=== PATIENT | male | born 1950 | race Caucasian/White ===

== ENCOUNTER 2020-06-04 08:51 | Outpatient (REF) | payer OTHER, MEDICARE, SELFPAY ==
[2020-06-04 11:38] LABS: Hemoglobin 14.6 g/dl (14.0-18.0); Mean Corpuscular HGB Conc 32.4 g/dl (31.0-36.0); Mean Corpuscular Hemoglobin 29.6 pg (27.0-33.0); Mean Corpuscular Volume 91.3 fL (80-98); Mean Platelet Volume 10.9 fL (9.4-12.4); Platelet Count 263 X10*3/uL (160-400); Red Blood Count 4.93 X10*6/uL (4.60-5.80); Red Cell Distribution Width 12.6 % (11.0-16.0); White Blood Count 5.9 X10*3/uL (4.8-10.8)
[2020-06-04 12:35] LABS: Alanine Aminotransferase 22 U/L (0-40); Albumin Level 4.2 g/dL (3.5-5.0); Alkaline Phosphatase 63 U/L (39-117); Anion Gap 11 (12-20); Aspartate Amino Transferase 19 U/L (5-37); Bilirubin Total 0.7 mg/dL (0.0-1.0); Blood Urea Nitrogen 16 mg/dL (9-16); Calcium 9.4 mg/dL (8.4-10.2); Carbon Dioxide 29 mmol/L (22-29); Chloride 104 mmol/L (96-108); Cholesterol 168 mg/dL; Estimated Glomerular Filt Rate > 60; Glucose Fasting 91 mg/dL (60-99); HDL Cholesterol 64 mg/dL; LDL Cholesterol Calculated 93 mg/dl; Potassium 4.4 mmol/l (3.3-5.1); Sodium 140 mmol/L (135-145); Total Protein 6.6 g/dL (6.5-8.0); Triglycerides 59 mg/dL
== END 2020-06-04 08:52 | disposition home or self-care (01) ==
LOC: HO.MANLDS 08:51
PROVIDERS: PCP Internal Medicine; Visit Provider Internal Medicine
DX: E78.00 Pure hypercholesterolemia, unspecified (principal)
CPT/HCPCS: 36415; 80053; 80061; 85027

== ENCOUNTER 2021-05-27 07:42 | Outpatient (REF) | payer OTHER, SELFPAY ==
[2021-05-27 11:03] LABS: MANUAL DIFF FLAG NO
[2021-05-27 11:08] LABS: Basophils Absolute Auto 0.1 X10*3/uL (0.0-0.2); Basophils Percent Auto 0.9 % (0-2); Eosinophils Absolute Auto 0.3 X10*3/uL (0.0-0.4); Eosinophils Percent Auto 5.5 % (0-4); Hematocrit 44.7 % (42-52); Hemoglobin 14.4 g/dl (14.0-18.0); Imm Gran Abs Auto 0.02 X10*3/uL (0.00-0.03); Imm Gran Pct Auto 0.3 % (0.0-0.4); Lymphocytes Absolute Auto 2.2 X10*3/uL (1.2-4.9); Lymphocytes Percent Auto 37.1 % (20-40); Mean Corpuscular HGB Conc 32.2 g/dl (31.0-36.0); Mean Corpuscular Hemoglobin 29.3 pg (27.0-33.0); Mean Corpuscular Volume 90.9 fL (80-98); Monocytes Absolute Auto 0.6 X10*3/uL (0.1-1.2); Monocytes Percent Auto 10.4 % (2-11); Neutrophils Absolute Auto 2.7 X10*3/uL (2.0-8.3); Neutrophils Percent Auto 45.8 % (45-73); Platelet Count 241 X10*3/uL (160-400); Red Blood Count 4.92 X10*6/uL (4.60-5.80); Red Cell Distribution Width 12.6 % (11.0-16.0); White Blood Count 5.9 X10*3/uL (4.8-10.8)
[2021-05-27 11:28] LABS: Alanine Aminotransferase 23 U/L (0-40); Albumin Level 4.1 g/dL (3.5-5.0); Alkaline Phosphatase 58 U/L (39-117); Anion Gap 9 (12-20); Aspartate Amino Transferase 20 U/L (5-37); Bilirubin Total 0.9 mg/dL (0.0-1.0); Blood Urea Nitrogen 21 mg/dL (9-16); Calcium 9.2 mg/dL (8.4-10.2); Carbon Dioxide 31 mmol/L (22-29); Chloride 106 mmol/L (96-108); Cholesterol 160 mg/dL; Estimated Glomerular Filt Rate > 60; Glucose Fasting 96 mg/dL (60-99); HDL Cholesterol 57 mg/dL; LDL Cholesterol Calculated 93 mg/dl; Potassium 4.1 mmol/L (3.3-5.1); Sodium 142 mmol/L (135-145); Total Protein 6.5 g/dL (6.5-8.0); Triglycerides 53 mg/dL
[2021-05-27 11:58] LABS: Prostate Specific Antigen 5.33 ng/mL (<0.05-4.0); Vitamin D 25-OH Total 30.4 ng/mL (>30)
== END 2021-05-27 07:43 | disposition home or self-care (01) ==
LOC: HO.MANLDS 07:42
PROVIDERS: PCP Internal Medicine; Visit Provider Internal Medicine
DX: Z00.01 Encounter for general adult medical examination with abnormal findings (principal); Z12.5 Encounter for screening for malignant neoplasm of prostate
CPT/HCPCS: 36415; 80053; 80061; 82306; 84153; 85025

== ENCOUNTER 2022-08-19 07:35 | Outpatient (REF) | payer OTHER, SELFPAY ==
[2022-08-19 11:12] LABS: MANUAL DIFF FLAG NO
[2022-08-19 11:28] LABS: Basophils Absolute Auto 0.1 X10*3/uL (0.0-0.2); Basophils Percent Auto 0.8 % (0-2); Eosinophils Absolute Auto 0.3 X10*3/uL (0.0-0.4); Eosinophils Percent Auto 4.6 % (0-4); Hematocrit 42.9 % (42.0-52.0); Hemoglobin 14.1 g/dl (14.0-18.0); Imm Gran Abs Auto 0.02 X10*3/uL (0.00-0.03); Imm Gran Pct Auto 0.3 % (0.0-0.4); Lymphocytes Absolute Auto 2.3 X10*3/uL (1.2-4.9); Lymphocytes Percent Auto 38.8 % (20-40); Mean Corpuscular HGB Conc 32.9 g/dl (31.0-36.0); Mean Corpuscular Hemoglobin 29.7 pg (27.0-33.0); Mean Corpuscular Volume 90.3 fL (80.0-98.0); Mean Platelet Volume 10.9 fL (9.4-12.4); Monocytes Absolute Auto 0.6 X10*3/uL (0.1-1.2); Monocytes Percent Auto 10.8 % (2-11); Neutrophils Absolute Auto 2.6 x10*3/uL (2.0-8.3); Neutrophils Percent Auto 44.7 % (45-73); Platelet Count 225 X10*3/uL (160-400); Red Blood Count 4.75 X10*6/uL (4.60-5.80); Red Cell Distribution Width 12.8 % (11.0-16.0); White Blood Count 5.9 X10*3/uL (4.8-10.8)
[2022-08-19 12:03] LABS: Alanine Aminotransferase 23 U/L (0-40); Alkaline Phosphatase 50 U/L (39-117); Anion Gap 10 (12-20); Aspartate Amino Transferase 21 U/L (5-37); Blood Urea Nitrogen 19 mg/dL (9-16); Calcium 9.6 mg/dL (8.4-10.2); Carbon Dioxide 31 mmol/L (22-29); Chloride 105 mmol/L (96-108); Cholesterol 198 mg/dL; Estimated Glomerular Filt Rate > 60; Glucose Random 90 mg/dL (60-115); HDL Cholesterol 70 mg/dL; LDL Cholesterol Calculated 116 mg/dl; Potassium 3.9 mmol/L (3.3-5.1); Prostate Specific Antigen 5.36 ng/mL (<0.05-4.0); Sodium 142 mmol/L (135-145); Total Protein 6.2 g/dL (6.5-8.0); Triglycerides 62 mg/dL
== END 2022-08-19 07:36 | disposition home or self-care (01) ==
LOC: HO.MANLDS 07:35
PROVIDERS: Visit Provider Internal Medicine
DX: Z00.00 Encounter for general adult medical examination without abnormal findings (principal); Z12.5 Encounter for screening for malignant neoplasm of prostate
CPT/HCPCS: 36415; 80053; 80061; 82306; 84153; 85025

== ENCOUNTER 2023-01-05 08:31 | Outpatient (REF) | payer OTHER, MEDICARE, SELFPAY ==
[2023-01-06 15:13] LABS: Free Prostate Spec Ag 1.2 ng/mL; Percent Free Prostate Spec Ag 19 % (calc) (>25); Prostate Specific Ag Total 6.2 ng/mL (< OR = 4.0)
== END 2023-01-05 08:32 | disposition home or self-care (01) ==
LOC: HO.MANLDS 08:31
PROVIDERS: Visit Provider Internal Medicine
DX: Z12.5 Encounter for screening for malignant neoplasm of prostate (principal); R97.20 Elevated prostate specific antigen [PSA]
CPT/HCPCS: 36415; 84154

== ENCOUNTER 2023-04-20 07:47 | Outpatient (REF) | payer OTHER, MEDICARE, SELFPAY ==
[2023-04-20 15:18] LABS: Prostate Specific Antigen 5.18 ng/mL (<0.05-4.0)
== END 2023-04-20 07:48 | disposition home or self-care (01) ==
LOC: HO.MANLDS 07:47
PROVIDERS: Visit Provider Internal Medicine
DX: Z12.5 Encounter for screening for malignant neoplasm of prostate (principal); R97.20 Elevated prostate specific antigen [PSA]
CPT/HCPCS: 36415; 84153

== ENCOUNTER 2023-06-28 08:00 | Outpatient (REF) | payer OTHER, MEDICARE, SELFPAY ==
[2023-06-29 10:43] LABS: Free Prostate Spec Ag 2.2 ng/mL; Percent Free Prostate Spec Ag 27 % (calc) (>25); Prostate Specific Ag Total 8.3 ng/mL (< OR = 4.0)
== END 2023-06-28 08:01 | disposition home or self-care (01) ==
LOC: HO.MANLDS 08:00
PROVIDERS: Visit Provider Internal Medicine
DX: R97.20 Elevated prostate specific antigen [PSA] (principal)
CPT/HCPCS: 36415; 84154

== ENCOUNTER 2023-07-02 11:45 | Outpatient (REF) | payer OTHER, MEDICARE, SELFPAY ==
[2023-07-02 13:26] LABS: MANUAL DIFF FLAG NO
[2023-07-02 13:40] LABS: Basophils Absolute Auto 0.1 X10*3/uL (0.0-0.2); Basophils Percent Auto 0.7 % (0-2); Eosinophils Percent Auto 0.4 % (0-4); Hematocrit 36.6 % (42.0-52.0); Hemoglobin 11.9 g/dl (14.0-18.0); Imm Gran Abs Auto 0.02 X10*3/uL (0.00-0.03); Imm Gran Pct Auto 0.3 % (0.0-0.4); Lymphocytes Absolute Auto 1.2 X10*3/uL (1.2-4.9); Lymphocytes Percent Auto 16.8 % (20-40); Mean Corpuscular HGB Conc 32.5 g/dl (31.0-36.0); Mean Corpuscular Hemoglobin 29.7 pg (27.0-33.0); Mean Corpuscular Volume 91.3 fL (80.0-98.0); Mean Platelet Volume 11.6 fL (9.4-12.4); Monocytes Absolute Auto 0.6 X10*3/uL (0.1-1.2); Neutrophils Absolute Auto 5.4 x10*3/uL (2.0-8.3); Neutrophils Percent Auto 73.8 % (45-73); Platelet Count 245 X10*3/uL (160-400); Red Blood Count 4.01 X10*6/uL (4.60-5.80); Red Cell Distribution Width 12.6 % (11.0-16.0); White Blood Count 7.3 X10*3/uL (4.8-10.8)
[2023-07-02 14:13] LABS: Erythrocyte Sedimentation Rate 16 MM/HR (0-15)
[2023-07-02 14:48] LABS: Ferritin 826 ng/mL (20-250); Free T4 (Free Thyroxine) 1.03 ng/dL (0.71-1.85); Thyroid Stimulating Hormone 2.29 uIU/mL (0.32-4.0)
[2023-07-02 14:56] LABS: Alanine Aminotransferase 9 U/L (0-40); Albumin Level 4.4 g/dL (3.5-5.0); Alkaline Phosphatase 56 U/L (39-117); Anion Gap 15 (12-20); Aspartate Amino Transferase 9 U/L (5-37); Bilirubin Total 0.9 mg/dL (0.0-1.0); Blood Urea Nitrogen 65 mg/dL (9-16); C Reactive Protein 0.31 mg/dL (< or = 0.50); Calcium 9.8 mg/dL (8.4-10.2); Carbon Dioxide 27 mmol/L (22-29); Chloride 103 mmol/L (96-108); Estimated Glomerular Filt Rate 8; Glucose Random 173 mg/dL (60-115); Iron 97 mcg/dL (45-160); Percent Iron Saturation 43 % (15-50); Sodium 141 mmol/L (135-145); Total Iron Binding Capacity 227 mcg/dL (228-428); Total Protein 7.4 g/dL (6.5-8.0); Unsaturated Iron Binding 130 ug/dL
== END 2023-07-02 11:46 | disposition home or self-care (01) ==
LOC: HO.MANLDS 11:45
PROVIDERS: Visit Provider Internal Medicine
DX: R63.4 Abnormal weight loss (principal)
CPT/HCPCS: 36415; 80053; 82728; 83540; 84439; 84443; 85025; 85652; 86140

== ENCOUNTER 2023-07-05 07:59 | Outpatient (REF) | payer OTHER, MEDICARE, SELFPAY ==
[2023-07-05 13:13] LABS: MANUAL DIFF FLAG NO
[2023-07-05 13:18] LABS: Appearance Urine Clear; Color Urine Yellow; Glucose Urine UA Negative (Negative); Leukocyte Esterase Urine Negative (Negative); Nitrite Urine Negative (Negative); Urine Blood Negative (Negative); Urine Ketones Negative (Negative); Urine Protein Negative (Neg-Trace)
[2023-07-05 13:28] LABS: Basophils Absolute Auto 0.1 X10*3/uL (0.0-0.2); Eosinophils Absolute Auto 0.2 X10*3/uL (0.0-0.4); Eosinophils Percent Auto 2.5 % (0-4); Hemoglobin 12.6 g/dl (14.0-18.0); Imm Gran Abs Auto 0.02 X10*3/uL (0.00-0.03); Imm Gran Pct Auto 0.2 % (0.0-0.4); Lymphocytes Absolute Auto 1.7 X10*3/uL (1.2-4.9); Lymphocytes Percent Auto 20.2 % (20-40); Mean Corpuscular HGB Conc 33.2 g/dl (31.0-36.0); Mean Corpuscular Hemoglobin 29.4 pg (27.0-33.0); Mean Corpuscular Volume 88.8 fL (80.0-98.0); Mean Platelet Volume 11.4 fL (9.4-12.4); Monocytes Absolute Auto 0.9 X10*3/uL (0.1-1.2); Monocytes Percent Auto 10.2 % (2-11); Neutrophils Absolute Auto 5.5 x10*3/uL (2.0-8.3); Neutrophils Percent Auto 65.9 % (45-73); Platelet Count 254 X10*3/uL (160-400); Red Blood Count 4.28 X10*6/uL (4.60-5.80); Red Cell Distribution Width 12.6 % (11.0-16.0); White Blood Count 8.4 X10*3/uL (4.8-10.8)
[2023-07-05 14:20] LABS: Alanine Aminotransferase 10 U/L (0-40); Albumin Level 4.3 g/dL (3.5-5.0); Alkaline Phosphatase 54 U/L (39-117); Anion Gap 16 (12-20); Aspartate Amino Transferase 11 U/L (5-37); Blood Urea Nitrogen 62 mg/dL (9-16); Calcium 10.2 mg/dL (8.4-10.2); Carbon Dioxide 28 mmol/L (22-29); Chloride 100 mmol/L (96-108); Estimated Glomerular Filt Rate 8; Glucose Random 107 mg/dL (60-115); Magnesium 2.3 mg/dL (1.6-2.6); Sodium 140 mmol/L (135-145); Total Protein 7.4 g/dL (6.5-8.0)
== END 2023-07-05 08:00 | disposition home or self-care (01) ==
LOC: HO.MANLDS 07:59
PROVIDERS: Visit Provider Internal Medicine
DX: N17.9 Acute kidney failure, unspecified (principal)
CPT/HCPCS: 36415; 80053; 81003; 83735; 84100; 84550; 85025

== ENCOUNTER 2023-09-06 07:25 | Outpatient (REF) | payer OTHER, MEDICARE, SELFPAY ==
[2023-09-06 13:16] LABS: Anion Gap 13 (12-20); Blood Urea Nitrogen 45 mg/dL (9-16); Calcium 9.7 mg/dL (8.4-10.2); Carbon Dioxide 29 mmol/L (22-29); Chloride 105 mmol/L (96-108); Estimated Glomerular Filt Rate 34; Phosphorus 3.9 mg/dL (2.7-4.5); Potassium 4.3 mmol/L (3.3-5.1); Sodium 143 mmol/L (135-145)
== END 2023-09-06 07:26 | disposition home or self-care (01) ==
LOC: HO.MANLDS 07:25
PROVIDERS: Visit Provider Internal Medicine
DX: N17.9 Acute kidney failure, unspecified (principal)
CPT/HCPCS: 36415; 80051; 82310; 82565; 84100; 84520

== ENCOUNTER 2024-10-24 09:47 | Outpatient (REF) | payer OTHER, MEDICARE, SELFPAY ==
--- OUTSIDE RECORDS SUMMARY | 2024-10-24 11:07 | XMS_ITS | Data Portability ---
Author Organization [facility] Address [address] [place] [address] Assessment Encounter Date Assessment Date Assessment LastModified by Organization Details LastModified Time 07/05/2023 07/05/2023 [id number] [place] [address] (QUALITY CONTROL ASSOCIATE) MDM MODERATE MUST MEET 2 OUT OF 3 ELEMENTS: PROBLEMS, DATA OR RISK ELEMENT 1: PROBLEMS ADDRESSED 1 OR MORE CHRONIC ILLNESS WITH EXACERBATION OR 2 OR MORE STABLE CHRONIC ILLNESSES OR 1 UNDIAGNOSED NEW PROBLEM OR 1 ACUTE ILLNESS W/SYMPTOMS OR 1 ACUTE COMPLICATED INJURY ELEMENT 2: DATA MUST MEET 1 OF 3 CATEGORIES CATEGORY 1: REVIEW OF PRIOR EXTERNAL NOTES, REVIEW OF RESULTS, ORDERING OF EACH TEST, ASSESSMENT REQUIRING INDEPENDENT HISTORIAN OR CATEGORY 2: INDEPENDENT INTERPRETATION OF TESTS BY ANOTHER PHYSICIAN OR SPECIALIST OR CATEGORY 3: DISCUSSION OF MGT OR TEST INTERPRETATION W/EXTERNAL PHYSICIAN OR SPECIALIST ELEMENT 3: RISK RISK OF COMPLICATIONS AND/OR MORBIDITY OR MORTALITY OF PATIENT MANAGEMENT PROVIDER MUST THOROUGHLY DOCUMENT EACH ELEMENT THAT IS COVERED Not available 07/05/2023 11:13:47 07/16/2023 07/16/2023 [id number] [place] [address] (QUALITY CONTROL ASSOCIATE) MDM MODERATE MUST MEET 2 OUT OF 3 ELEMENTS: PROBLEMS, DATA OR RISK ELEMENT 1: PROBLEMS ADDRESSED 1 OR MORE CHRONIC ILLNESS WITH EXACERBATION OR 2 OR MORE STABLE CHRONIC ILLNESSES OR 1 UNDIAGNOSED NEW PROBLEM OR 1 ACUTE ILLNESS W/SYMPTOMS OR 1 ACUTE COMPLICATED INJURY ELEMENT 2: DATA MUST MEET 1 OF 3 CATEGORIES CATEGORY 1: REVIEW OF PRIOR EXTERNAL NOTES, REVIEW OF RESULTS, ORDERING OF EACH TEST, ASSESSMENT REQUIRING INDEPENDENT HISTORIAN OR CATEGORY 2: INDEPENDENT INTERPRETATION OF TESTS BY ANOTHER PHYSICIAN OR SPECIALIST OR CATEGORY 3: DISCUSSION OF MGT OR TEST INTERPRETATION W/EXTERNAL PHYSICIAN OR SPECIALIST ELEMENT 3: RISK RISK OF COMPLICATIONS AND/OR MORBIDITY OR MORTALITY OF PATIENT MANAGEMENT PROVIDER MUST THOROUGHLY DOCUMENT EACH ELEMENT THAT IS COVERED Not available 07/16/2023 11:22:32 10/18/2024 10/18/2024 Patient presente d to office today for their Medicare Annual Wellness Visit. Education was provided on healthy nutrition, including a diet rich in fruits and vegetables, minimizing simple carbohydrates, salt, and saturated fats. Encouraged regular cardiovascular exercise such as walking at least 30 minutes daily, 5 times per week. Emphasized preventive health measures and educated pt on fall prevention and community-based lifestyle interventions to help reduce health risks and promote healthy living. Not available 10/18/2024 08:29:25 Plan of Treatment Reminders Order Date Submit Date Provider Last Modified By Organization Details Last Modified Time Details Appointments None recorded. Lab lipid panel, blood 2024 025 [facility], [address] [place] [address], [id number], 12:17:48 hemoglobin , gastrointe stinal, stool 2024 025 [facility], [address] [place] [address], [id number], 5 12:17:48 CBC w/ auto diff 2024 025 [facility], [address] [place] [address], [address], 5 12:17:48 CMP, serum or plasma 2024 025 [facility], [address] [place] [address], [address], 5 12:17:48 renal function panel, serum 2023 024 [facility], [address] [place] [address], [address], 4 14:32:27 renal function panel, serum 2022 023 [facility] (Centralized Electronic Ordering - All Locations), Patient Can Go To The Location Of Their Choice, [id number] 3 10:08:54 Referral urologist referral 2022 023 dianne Caba MD, [address] [place], [address], 3 08:47:20 Procedures None recorded. Surgeries None recorded. Imaging None recorded. Medication Orders None recorded. Patient TargetsNo targets recorded. Patient Instructions Encounter Date Encounter Id Patient Instructions Last Modified By Organization Details Last Modified Time 07/16/2023 [id number] prostate biopsy: about this test Not available 07/16/2023 11:30:43 acute kidney injury: care instructions Not available 07/16/2023 11:30:43 10/18/2024 [id number] Discussed and explained advance directives such as standard forms to the {{patient caregiv er patient and caregiver}}. Face to face discussion lasted for a duration of ___ minutes. Not available 10/18/2024 08:29:25 Reason for Referral Urologist Referral for Prost ate specific antigen above reference range Referring Physician: Star Brewer, Internal Medicine, Encounter Date: 07/16/2023 Results Created Date Observation Date Name Description Value Unit Range Abnormal Flag Note LastModifiedBy Organization Detail LastModifiedTime Result Notes None recorded. Problems Name Problem SNOMED Code Status Onset Date Resolution Date Notes Provider Name and Address Organization Details Recorded Time Prostate specific antigen above referenc e range 251212501 Active 2022 Not Available [facility] 3 13:39:40 Abnormal weight loss 075303857 Active 2022 Not Available [facility] 3 13:39:40 Abdomina l pain 81914223 Active 2022 Not Available [facility] 3 13:39:40 Acute kidney injury 73858043 Active 2022 Star Brewer, DO [address] [place], [address], [facility] 3 15:32:05 Acute nontraum atic kidney injury 73321535263 9103 Active 2022 Not Available [facility] 3 13:39:40 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 614933972 Active 2023 Star NamanMansoor Brewer, [address] [place], [address], [facility] 4 14:27:36 Abnormal blood pressure 32948022 Completed 201711/19/2017 Star NamanMansoor Brewer DO [address] [place], [address], [facility] 8 11:06:09 Hypercho lesterol emia 82320900 Active 2017 Not Available [facility] 3 13:39:40 [facility] 63164027 [facility] 11:30:29 Eczema 15082454 Active 2024 Star Brewer, [address] [place], [address], [facility] Internal [facility] 5 12:19:03 Problem Notes None recorded. Procedures Surgical History Date Name Laterality Status Provider Name and Address Organization Details Recorded Time 0 Colonoscopy completed Sabrina Veronica [facility] 04/05/2018 11:48:22 Imaging Results None recorded. Procedure Notes None recorded. Medical Equipment None Reported. Allergies No known drug allergies Medications Name Sig Start Date Stop Date Status Note LastModified by Organization Details LastModified Time losartan 50 mg tablet Take 1 tablet every day by oral route for 90 days. 07/02 completed Not Available Not Available Not Available atorvastati n 80 mg tablet Take by oral route. 07/05 completed Not Available Not Available Not Available lisinopril 20 mg tablet TAKE 1 TABLET BY MOUTH DAILY 07/02 completed Not Available Not Available Not Available tamsulosin 0.4 mg capsule 09/03 completed Not Available Not Available Not Available betamethaso ne dipropionat e 0.05 % topical cream APPLY A THIN LAYER TO THE AFFECTED AREA(S) BY TOPICAL ROUTE ONCE DAILY 2024 active Not Available Not Available Not Avai lable Multivitami n 50 Plus tablet Take 1 tablet every day by oral route. 09/03 completed Not Available Not Available Not Available tamsulosin active Not Available Not Av ailable Not Available lisinopril 07/05 completed Not Available Not Available Not Available fiber 01/15 completed Not Available Not Available Not Available collagen (bovine) 01/15 completed Not Available Not Available Not Available Ilevro 0.3 % eye drops,suspe nsion PLACE ONE DROP IN AFFECTED EYE NIGHTLY AT BEDTIME DIRECTED 09/03 completed Not Available Not Available Not Available timolol 0.5 %-bimatopro st 0.01 % (PF) eye drops 1 drop each eye at night active Not Available Not Available No t Available Vitals Date Recorded Body height Body mass index (BMI) Body weight Heart rate Oxygen saturation Oxygen saturation in Arterial blood by Pulse oximetry Systolic blood pressure Diastolic blood pressure Provider Name and Address Organization Details Last Updated DateTime 3 175.9 cm 24.8 kg/m2 91421.1 1 g 81 /min 99 % 99 % 141 mm[Hg] 86 mm[Hg] [facility] 3 10:43:09 Date Recorded Body height Body mass index (BMI) Body weight Heart rate Oxygen saturation Oxygen saturation in Arterial blood by Pulse oximetry Systolic blood pressure Diastolic blood pressure Provider Name and Address Organization Details Last Updated DateTime 3 175.9 cm 25.7 kg/m2 75779.6 6 g 62 /min 98 % 98 % 145 mm[Hg] 71 mm[Hg] [facility] 3 10:35:38 Date Recorded Body height Body mass index (BMI) Body weight Heart rate Oxygen saturation Oxygen saturation in Arterial blood by Pulse oximetry Systolic blood pressure Diastolic blood pressure Provider Name and Address Organization Details Last Updated DateTime 3 175.9 cm 26.1 kg/m2 51885.4 4 g 80 /min 98 % 98 % 150 mm[Hg] 100 mm[Hg] Latrice Ponce [facility] 3 15:35:55 Date Recorded Body height Body mass index (BMI) Body weight Heart rate Oxygen saturation Oxygen saturation in Arterial blood by Pulse oximetry Systolic blood pressure Diastolic blood pressure Provider Name and Address Organization Details Last Updated DateTime 4 175.9 cm 25.7 kg/m2 11014.6 6 g 89 /min 98 % 98 % 138 mm[Hg] 80 mm[Hg] Latrice Ponce [facility] 4 14:05:52 Date Recorded Body height Body mass index (BMI) Body weight Heart rate Oxygen saturation Oxygen saturation in Arterial blood by Pulse oximetry Systolic blood pressure Diastolic blood pressure Provider Name and Address Organization Details Last Updated DateTime 5 175.9 cm 28 kg/m2 73476.1 4 g 62 /min 99 % 99 % 124 mm[Hg] 78 mm[Hg] Ruth Rodriguez [facility] 5 11:38:12 Social History Question Answer Notes LastModified by [employer] ion Details LastModified Time Tobacco Smoking Status Never Smoker Not Available [facility] 06/18/2020 03:36:24 What Is Your Level Of Alcohol Consumption? Occasional [id number] Information not available 06/18/2020 Are You Blind Or Do You Have Difficulty Seeing? No [id number] Information not available 06/18/2020 What Is Your Level Of Caffeine Consumption? Occasional 2 Cups Coffee Per Day [id number] Information not available 06/18/2020 How Much Tobacco Do You Chew? None [id number] Information not available 06/18/2020 Are You Currently Employed? No [id number] Information not available 06/18/2020 What Type Of Diet Are You Following? REGULAR [id number] Information not available 06/18/2020 Which Illicit Or Recreational Drugs Have You Used? 0 [id number] Information not available 06/18/2020 Education 4 Year College Informatio n not available 07/26/2019 What Is Your Occupation? Retired [id number] Information not available 06/18/2020 How Many Days Of Moderate To Strenuous Exercise, Like A Brisk Walk, Did You Do In The Last 7 Days? 7 [id number] Information not available 06/18/2020 Are There Any Guns Present In Your Home? No [id number] Information not available 06/18/2020 Hard Of Hearing Or Deaf In One Or Both Ears? No Information not available 07/26/2019 Live Alone Or With Others? With Others Information not available 07/26/2019 What Was The Date Of Your Most Recent Tobacco Screening? 10/18/2024 Information not available 10/18/2024 How Many Children Do You Have? 3 [id number] Information not available 06/18/2020 Performs Monthly Self-breast Exam? No Information not available 07/26/2019 Seat Belts Used Routinely Yes Information not available 07/26/2019 Are You Sexually Active? Yes [id number] Information not available 06/18/2020 Smoke Alarm In Home Yes Information not available 07/26/2019 At What Age Did You Start Smoking Tobacco? 0 [id number] Information not available 06/18/2020 Are You Passively Exposed To Smoke? No Information not available 07/26/2019 How Much Tobacco Do You Smoke? No [id number] Information not available 06/18/2020 General Stress Level Low Information not available 07/26/2019 Do You Use Sunscreen Routinely? Yes [id number] Information not available 06/18/2020 How Many Years Have You Smoked Tobacco? 0 [id number] Information not available 06/18/2020 Do You Or Have You Ever Used Any Other Forms Of Tobacco Or Nicotine? No Information not available 01/21/2022 Sex: Unknown Functional Status Question Answer Note LastModified by Organizat ion Details LastModified Time Do you have difficulty walking or climbing stairs? No [id number] Information not available 06/18/2020 Are you able to walk? YESWOREST [id number] Information not available 06/18/2020 Do you have difficulty doing errands alone? No [id number] Information not available 06/18/2020 Are you able to care for yourself? Yes [id number] Information not available 06/18/2020 Do you have difficulty dressing or bathing? No [id number] Information not available 06/18/2020 What is your exercise level? Moderate [id number] Information not available 06/18/2020 Mental Status Question Answer Note LastModified by Organization D etails LastModified Time Do you have difficulty concentrating, remembering or making decisions? No [id number] Information no t available 06/18/2020 Family History Nothing Reported. Medical History Condition Response Coronary Artery Disease N Gout N Other N Kidney Stones N Blood Diseases N Blood Transfusion N Breast Cancer N COPD N Depression N Lung Disease N Defects or Inherited Disease N Anxiety Disorder N Muscle, Joint, or Bone Problems N Obesity N Vision or Eye Problems N Arthritis N Polyps N Infertility N Mental Disorder N Cancer N Varicosities N Stroke N Endometriosis N Bladder or Kidney Problems N High Cholesterol N Liver Disease N Headaches N Fibromyalgia N Kidney Disease N Allergies/Hayfever N Heart Problems N Hospitalizations N Thyroid Problems N GI Problems N Eating Disorder N Skin Problems N Anemia N MRSA exposure N Constipation N Mental Illness N Diabetes N Ovarian Cancer N Seizures/Epilepsy N Tuberculosis N Congestive Heart Failure (CHF) N Eczema N Abuse/Domestic Violence N Diverticulitis N Asthma N Reflux/GERD N Hepatitis N Heart Disease N Pulmonary Embolism N Hypertension N Chicken Pox N Autism Spectrum Disorder (ASD) N Osteoporosis N Immunizations Vaccine Type Date Status Note Provider Nam e and Address Organization Details Recorded Time COVID-19, mRNA, LNP-S, PF, 30 mcg/0.3 mL dose 1 completed Not Available [facility] 07/19/2023 13:39:41 COVID-19, mRNA, LNP-S, PF, 30 mcg/0.3 mL dose 2 completed Not Available [facility] 07/19/2023 13:39:41 influenza, unspecified formulation 2 completed Not Available [facility] 07/19/2023 13:39:41 pneumococcal polysaccharide PPV23 2 completed Not Available [facility] 07/19/2023 13:39:41 Influenza, split virus, quadrivalent, preservative 0 completed Not Available [facility] 07/19/2023 13:39:41 Tdap 0 completed Not Available [facility] 07/19/2023 13:39:41 Pneumococcal conjugate PCV 13 0 completed Not Available [facility] 07/[facility]23 13:39:41 zoster recombinant 0 completed Not Available [facility] 07/19/2023 13:39:41 zoster recombinant 1 completed Not Available [facility] 07/19/2023 13:39:41 COVID-19, mRNA, LNP-S, PF, 30 mcg/0.3 mL dose 1 completed Not Available [facility] 07/19/2023 13:39:41 COVID-19, mRNA, LNP-S, PF, 30 mcg/0.3 mL dose 1 completed Not Available [facility] 07/19/2023 13:39:41 Past Encounters Encounter ID Performer Location Encounter Start Date Encounter Closed Date Diagnosis/Indication Diagnosis SNOMED-CT Code Diagnosis ICD10 Code Diagnosis Note [id number] Star Brewer [facility] [address] [facility] [address] 11/19/2017 10:38:24 11/19/2017 11:31:30 Essential hypertension 26500346 I10 doing well w bp to keep checkin periodical ly Hypercholesterolemia 136 36353 E78.00 will repeat lab in fall Star Brewer DO [facility] Internal [facility] [address] [facility] [address] [address] 07/05/2018 14:37:34 07/05/2018 15:43:29 Adult health examination 258132046 Z00.00 doing well no major issues Active or passive immunization 724461885 Z23 recc shingles vacc at local pharmacy Abdominal aortic aneurysm screening 319689075 Z13.6 will order Hepatitis C screening 41 5036798 Z11.59 next lab draw [id number] Star Brewer DO [facility] Internal Medicine [address] [facility] [address] 01/24/2019 13:16:14 01/24/2019 13:52:27 Essential hypertension 13764812 I10 doing well w bp to keep checking periodical ly Hypercholesterolemia 136 92357 E78.00 will repeat lab in fall Left inguinal hernia 236 902137 K40.90 [id number] Star Brewer DO [facility] Internal Medicine [address] [facility] [address] 07/26/2019 08:46:19 07/26/2019 09:25:26 Essential hypertension 28352317 I10 BP is well controlled and no SE Hypercholesterolemia 136 47655 E78.00 Chol is well controlled with no SE Prostate s pecific antigen above reference range 431797482 R97.20 Elevated at 4.95 will recheck in 1 month Will refer to uro if elevated still Hepatitis C screening 41 7709475 Z11.59 grayzone on previous labs recheck 1 mo Left inguinal hernia 236 886776 K40.90 here and seen by dr veronica told to just watch and wait [id number] Star Brewer [facility] [address] [facility] [address] 01/16/2020 08:40:41 01/16/2020 09:21:00 Essential hypertension 44036602 I10 BP is well controlled and no SE Hypercholesterolemia 136 35301 E78.00 needs rechk [id number] Star Brewer [facility] [address] [facility] [place] [address] 06/17/2020 09:37:30 06/17/2020 10:42:21 Hypercholesterolemia 45256498 E78.00 needs rechk and must have him check bp at home states he has not been exercising but will keep bp a check of bp at home Essential hypertension 01456065 I10 BP is well controlled and no SE will be checking bps at home to make sure [facility] bp was not accurate overall [id number] Star Brewer [facility] [address] [facility] [place] [address] 12/24/2020 09:47:24 12/24/2020 11:03:52 Active or passive immunization 037555844 Z23 is now DCD Adult [facility] th examination 208679573 Z00.01 doing well no major issues except his right A_C jt we will refer to ortho Closed tra umatic dislocation acromioclavicular joint 241817054 S43.101A [id number] Star Brewer [facility] [address] [facility] [place] [address] 07/25/2021 09:33:00 07/25/2021 10:00:36 Hypercholesterolemia 13167438 E78.00 needs rechk and must have him check bp at home states he has not been exercising but will keep bp a check of bp at home Essential hypertension 27813283 I10 BP is well controlled and no SE will be checking bps at home to make sure solo bp was not accurate overall [id number] Star Brewer [facility] [address] [facility] [address] 01/21/2022 13:59:22 01/21/2022 16:09:51 Pre-surgery evaluation 031327570 Z01.818 cleared as noted above [id number] Star Brewer [facility] [address] [facility] [address] 08/18/2022 08:54:30 08/18/2022 09:29:57 Active or passive immunization 483560799 Z23 is now UTD Adult heal th examination 072398835 Z00.00 doing well no major issues except his right A_C jt we will refer to ortho [id number] Star Brewer [facility] [address] [facility] [address] 07/05/2023 10:36:37 07/05/2023 13:27:31 Acute kidney injury 90883687 N17.9 as discussed received a flu vacc and 1 week later developed sudden illness and leg swelling and fatigue and anorexia with nausea and headachehe had been drinking a lot juice after the flu shot (they told him to ) and this certainly made things worse in light of the fact he was on atorvastat in which mad the kidney situation worse and also the lisinopril ending up with a creat of 5.6 on lab done last week now that he is feeling markedly better we will have him push the food intake with a renal diet and also follow closely with more lab work pt with some abdominal bloating several weeks ago but no other sx feels fine otherwise we are waiting for lab work todaymeds noted to have been stopped several weeks agostates has been feeling better but i informed him of the blood test showing kelsi youngerhe will go to ER if any chnageswil l need nephrolog urgent appt at leastER over weekend if any issue Essential hypertension 27127175 I10 stop all meds [id number] Star Brewer DO [facility] [address] [facility] [address],[place] [address] 07/16/2023 10:28:29 07/16/2023 13:56:53 Essential hypertension 88614469 I10 stop all meds Hypercholesterolemia 136 76593 E78.00 needs rechk and must have him check bp at home states he has not been exercising but will keep bp a check of bp at home Acute kidney injury 1466 9001 N17.9 actually doing well with a creat still at 6.6 and he is physically doing much betterphos phorus is sl elevated and will be followedun fortunatel y he has not been notified by renal dr yet and this is causing much irritation they have all labwork and UA (which was good)_will cont to eat well PRIOR: as discussed received a flu vacc and 1 week later developed sudden illness and leg swelling and fatigue and anorexia with nausea and headachehe had been drinking a lot juice after the flu shot (they told him to ) and this certainly made things worse in light of the fact he was on atorvastat in which mad the kidney situation worse and also the lisinopril ending up with a creat of 5.6 on lab done last week now that he is feeling markedly better we will have him push the food intake with a renal diet and also follow closely with more lab work pt with some abdominal bloating several weeks ago but no other sx feels fine otherwise we are waiting for lab work todaymeds noted to have been stopped several weeks agostates has been feeling better but i informed him of the blood test showing kelsi goodson will go to ER if any chnageswil l need nephrolog urgent appt at leastER over weekend if any issue Prostate s pecific antigen above reference range 645958061 R97.20 Elevated at8 wiill recheck in 1 month Will refer to uro if elevated still [id number] Star Brewer DO [facility] [address] [facility],[place] [address] 07/20/2023 15:14:59 07/21/2023 08:14:21 Hypercholesterolemia 41796726 E78.00 needs rechk and must have him check bp at home states he has not been exercising but will keep bp a check of bp at home Essential hypertension 98165883 I10 stop all medsall on hold during renal crisis followed now by nephro Acute nont raumatic kidney injury 2232843250 19766 N17.9 clearly is improving both symptomati gail and with lab work follow along with the nephalexiho feels combo of dehydratio n and lisinopril he is eating better and has gaine 3 lbs but no edema [id number] Star Brewer [facility] [address] [facility] [place] [address] 09/03/2023 13:50:04 09/03/2023 16:21:58 Active or passive immunization 247989456 Z23 is now UTD Adult heal th examination 288146362 Z00.01 doing well no major issues now that his bladder is drained and we will chk ihis lab Acute nont raumatic kidney injury 2910348831 89488 N17.9 clearly is improving both symptomati gail and with lab work follow along with the nephalexiho feels combo of dehydratio n and lisinopril doing great with catheter feels fine now eating and exercising will be getting bladder scan next week to assess function Essential hypertension 99622223 I10 stop all medsall on hold during renal crisis followed now by nephro Benign pro static hyperplasia with outflow obstruction 561036091 N40.1 will be nice if this is the only problem will be able to be surgically fixed [id number] Star Brewer [facility] [address] [facility],[place] [address] 10/18/2024 11:13:17 10/18/2024 12:22:06 Adult health examination 984782674 Z00.00 doing well no major issues now that his bladder is drained and we will chk ihis lab Screening for cardiovascular system disease 853039962 Z13.6 Screening for malignant neoplasm of colon 883462985 Z12.11 Health Concerns Section Related Observation LastModified by Organization Detai ls LastModified Time None Recorded Concern Status LastModified by Organization Details LastModified Time None Recorded Advance Directives Directive None Recorded Payers Encounter Date Sequence Insurance Name Policy Number Policy Guzman Covered Member ID Guzman Member ID Guarantor Name 07/05/2023 2 [facility] (HMO) [id number] Nicolaos G Peroulakis [id number] Nicolaos Peroulakis 07/05/2023 1 [place] [employer] Nicolaos G Peroulakis [id number] Nicolaos Peroulakis 07/16/2023 2 [facility] (O) [id number] Nicolaos G Peroulakis [id number] Nicolaos Peroulakis 07/16/2023 1 [place] Nicolaos G Peroulakis [id number] Nicolaos Peroulakis 07/20/2023 2 [facility] (O) [id number] Nicolaos G Peroulakis [id number] Nicolaos Peroulakis 07/20/2023 1 [place] Nicolaos G Peroulakis [id number] Nicolaos Peroulakis 09/03/2023 2 [facility] (POS) [id number] Nicolaos Peroulakis [id number] Nicolaos Peroulakis 09/03/2023 1 [place] Nicolaos G Peroulakis [id number] Nicolaos Peroulakis 10/18/2024 2 [facility] (POS) [id number] Nicolaos Peroulakis [id number] Nicolaos Peroulakis 10/18/2024 1 [place] Nicolaos G Peroulakis [id number] Nicolaos Peroulakis Notes Date Note Type Note Provider Name and Address Organization Details Recorded Time 3 text/html began to feel poorly 04 june after he had a flu shot when he started feeling ill and felt bloated this was noted that he was drinking a lot of juice and he had a possible interaction with the atorvastat and then while the kidney was injured he cont on lisinopril and then he relates he was very nauseated and stoped eating he relates he did vomit and felt very weekhe developed a rapid onset of leg swelling and feet all this has resolved over the past week or so and he is feeling much better now and is eating again etc Star Goode DO Daniella [address] [place], [address], [facility] 07/05/2023 12:14:19 3 text/html here for rechk and is doing ok overalleating well now and energy wood and fatigueeating much better and he is overall better than in the past few weeks relates that he is still having a lot of bloatingrelates is still eating good and gained some 6 lbs and has had no edema Star Berwer DO [address] [place], [address], [facility] 07/16/2023 11:31:24 3 text/html doing bertter seen by nephro yesterdaylab work eval and creat is down to 5.6 now from 6.7eating wellavoiding Na+ keeping eye on sugar intake as wellbeing careful with his diet Star Rupa Brewer DO [address] [place], [address], [facility] 07/20/2023 16:16:31 4 text/html Annual WellnessReported bypatient.Diet and Nutrition:healthy diet Fracture Risk:no history of fractures; no recent explained fracture; no sudden unexplained fractures; no previous musculoskeletal injuries Physical Activity:exercises on a regular basis; recent increase in physical activity; good physical condition Additional Lifestyle Factors:no tobacco use; no alcohol intake; stopped drinking alcohol Depression Risk:never feels sad, empty, or tearful; no loss of interest in activities; no significant changes in weight; no sleep disturbances or insomnia; no agitation; no loss of energy; no feelings of worthlessness or guilt; no thoughts of suicide; no history of depression; no history of mood disorders Hearing:no loss of hearing Vision:no vision problemsNotes:urologist removed 3L of urine from a straight cathhad indwelling cath for several weeks and did wellrelates that he is still with the catheter and next week they will assess the bladder if ok they will operate on prostateif bladder bad then will need a nephrostomy following with urology who are going to be evaluating him for bladder function and if this is ok and the prostate is still swollen will have this operated on to relieve the outflow obstructionurology found some hydronephrosis as well Star Brewer, DO [address] [facility], [place], [address], [facility] 09/03/2023 14:33:17 5 text/html Medicare Annual Wellness VisitReported bypatient.Diet and Nutrition:healthy diet Fracture Risk:no history of fractures; no recent explained fracture; no sudden unexplained fractures; no previous musculoskeletal injuries Physical Activity:exercises on a regular basis; recent increase in physical activity; good physical condition Depression Risk:never feels sad, empty, or tearful; no loss of interest in activities; no significant changes in weight; no sleep disturbances or insomnia; no agitation; no loss of energy; no feelings of worthlessness or guilt; no thoughts of suicide; no history of depression; no history of mood disorders Orientation:no disorientation to time; no disorientation to date; no disorientation to place Concentration and Memory:no decreased concentrating ability; no memory lapses or loss; does not forget words Speech/Motor difficulties:no speech difficulties; no difficulty expressing formulated concepts; no difficulty with fine manipulative tasks; no difficulty writing/copying; no slowed reaction time; does not knock things over when trying to pick them up Hearing:no loss of hearing Vision:no vision problems Activities of Daily Living:able to bathe with limited or no assistance; able to contol urination and bowels; able to dress with limited or no assistance; able to feed self with limited or no assistance; able to get out of chair or bed with limited or no assistance; able to groom with limited or no assistance; able to toilet with limited or no assistance Instrumental Activities of Daily Living:able to do house work with limited or no assistance; able to grocery shop with limited or no assistance; able to manage medications with limited or no assistance; able to manage money with limited or no assistance; able to prepare meals with limited or no assistance; able to use the phone with limited or no assistance Falls Risk Assessment:no frequent falls while walking; no fall in the past year; no fall since last visit; no dizziness/vertigo Home Safety:no unsafe elizabeth hazzards; no unsafe stairs; no unsafe gas appliances; working smoke/CO detectors; wears protective head gear for biking/high velocity; use of seatbelts; practicing 'safer sex'; no vision or hearing loss while driving; no fire arms; has hand bars in the bathroom/shower; good lighting in the home hhere for ryliek mary doing okhad a aquablation prostate procedure Star Brewer, DO [address] [facility], [place], [address], [facility] 10/18/2024 12:17:16
--- OUTSIDE RECORDS SUMMARY | 2024-10-24 11:07 | XMS_ITS | Clinical Summary ---
Author Organization [facility], Address [address] [place] [address] Phone Care Team Providers Care Welt Sewer Name Role Phone Star Brewer DO Primary Care Provider [phone] Allergies No known active allergies Medications Multiple Vitamin (multivitamin) tablet Take 1 tablet by mouth 1 (one) time each day Active lisinopril 20 MG tablet 06/11/2023 Active tamsulosin (FLOMAX) 0.4 MG 24 hr capsule 07/28/2023 Activ e Active Problems Problem Noted Date Diagnosed Date Acute nontraumatic kidney injury 07/02/2023 Essential hypertension 10/15/2017 3 Social History Tobacco Use Types Packs/Day Years Used Date Smoking Tobacco: Never Assessed Sex and Gender Information Value Date Recorded Sex Assigned at Not on file Legal Sex Male 11:13 AM EST Gender Identity Not on file Sexual Orientation Not on file Plan of Treatment Health Maintenance Due Date Last Done Comments Colorectal Cancer Screening: Annual FOBT 1999 Colorectal Cancer Screening: Colonoscopy 1999 Colorectal Cancer Screening: Sigmoidoscopy 1999 Influenza Vaccine (#1) 2024 2, 06/19/2020 Pneumococcal Vaccine: 65+ Years Completed 08/18/2021, 06/19/2020 Hepatitis B Vaccine Aged Out No longe r eligible based on patient's age to complete this topic Insurance [facility] Care Teams Welt Sewer Relationship Specialty Start Date End Date Star Brewer DO [address] [facility] [place] [address] PCP - General Internal Medicine 07/19/23
--- OUTSIDE RECORDS SUMMARY | 2024-10-24 11:07 | XMS_ITS | Continuity of Care Document ---
Author Organization ID - [facility] Address [address] [facility] [place] [address] Assessment Encounter Date Assessment Date Assessment LastModified by Organization Details LastModified Time 10/18/2024 10/18/2024 Patient presente d to office [...] Details Last Modified Time Details Appointments None recorded . Lab lipid panel, blood [facility], [address] [place] [address], [address], 5 12:17:48 hemoglob in, gastroin testinal , stool 025 [facility], [address] [place] [address], [address], 5 12:17:48 CBC w/ auto diff 025 [facility], [address] [place] [address], [address], 5 12:17:48 CMP, serum or plasma 025 [facility], [address] [facility], [place], [address], 5 12:17:48 Referral None recorded . Procedures None recorded . Surgeries None recorded . Imaging None recorded . Medication Orders None recorded . Patient TargetsNo targets recorded. Patient Instructions Encounter Date Encounter Id Patient Instructions Last Modified By Organization Details Last Modified Time 10/18/2024 [id number] Discussed and explained advance directives such as standard forms to the {{patient caregiv er patient and caregiver}}. Face to face discussion lasted for a duration of ___ minutes. Not available 10/18/2024 08:29:25 Reason for Referral None Reported. Problems Name Problem SNOMED Code Status Onset Date Resolution Date Notes Provider Name and Address Organization Details Recorded Time Prostate specific antigen above referenc e range 238914691 Active 2022 Not Available [facility] 3 13:39:40 Abnormal weight loss 979248664 Active 2022 Not Available [facility] 3 13:39:40 Abdomina l pain 49590333 Active 2022 Not Available [facility] 3 13:39:40 Acute kidney injury 73686862 Active 2022 Star Brewer DO [address] [place] [address], [address], [facility] 3 15:32:05 Acute nontraum atic kidney injury 73869134253 9103 Active 2022 Not Available [facility] 3 13:39:40 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 668452877 Active 2023 Star Brewer DO [address] [place], [address], [facility] 4 14:27:36 Abnormal blood pressure 17084457 Completed 201711/19/2017 Star Brewer DO [address] [place], [address], [facility] 8 11:06:09 Hypercho lesterol emia 10708123 Active 2017 Not Available [facility] 3 13:39:40 [facility] 32465509 [facility] 2017 [facility] [place] [facility] 8 11:30:29 Eczema 14889965 Active 2024 Star Brewer, DO [address] [place] [address], [address], [facility] 5 12:19:03 Problem Notes None recorded. Procedures Surgical History Date Name Laterality Status Provider Name and Address Organization Details Recorded Time 0 Colonoscopy completed Sabrina [facility] 04/05/2018 11:48:22 Imaging Results None [...] Updated DateTime 5 175.9 cm 28 kg/m2 80339.1 4 g 62 /min 99 % 99 % 124 mm[Hg] 78 mm[Hg] [facility] 5 11:38:12 Social History Question Answer Notes LastModified by Organizat ion Details LastModified Time Tobacco Smoking Status Never Smoker Not Available [facility] 06/18/2020 03:36:24 What Is Your Level Of Alcohol Consumption? Occasional [id number] Information not available 06/18/2020 Are You Blind Or Do You Have Difficulty Seeing? No [id number] Information not available 06/18/2020 What Is Your Level Of Caffeine Consumption? Occasional 2 Cups Coffee Per Day [id number] Information not available 06/18/2020 How Much Tobacco Do You Chew? None [id number] Information not available 06/18/2020 Are You Currently Employed? No [id number] Information not available 06/18/2020 What Type Of Diet Are You Following? REGULAR [id number] Information not available 06/18/2020 Which Illicit Or Recreational Drugs Have You Used? 0 [id number] Information not available 06/18/2020 Education 4 Year College Informatio n not available 07/26/2019 What Is Your Occupation? Retired [id number] Information not available 06/18/2020 How Many Days Of Moderate To Strenuous Exercise, Like A Brisk Walk, Did You Do In The Last 7 Days? 7 [id number] Information not available 06/18/2020 Are There Any Guns Present In Your Home? No [id number] Information not available 06/18/2020 Hard Of Hearing Or Deaf In One Or Both Ears? No Information not available 07/26/2019 Live Alone Or With Others? With Others Information not available 07/26/2019 What Was The Date Of Your Most Recent Tobacco Screening? 10/18/2024 Information not available 10/18/2024 How Many Children Do You Have? 3 [id number] Information not available 06/18/2020 Performs Monthly Self-breast Exam? No Information not available 07/26/2019 Seat Belts Used Routinely Yes Information not available 07/26/2019 Are You Sexually Active? Yes [id number] Information not available 06/18/2020 Smoke Alarm In Home Yes Information not available 07/26/2019 At What Age Did You Start Smoking Tobacco? 0 [id number] Information not available 06/18/2020 Are You Passively Exposed To Smoke? No Information not available 07/26/2019 How Much Tobacco Do You Smoke? No [id number] Information not available 06/18/2020 General Stress Level Low Information not available 07/26/2019 Do You Use Sunscreen Routinely? Yes [id number] Information not available 06/18/2020 How Many Years Have You Smoked Tobacco? 0 [id number] Information not available 06/18/2020 Do You Or Have You Ever Used Any Other Forms Of Tobacco Or Nicotine? No Information not available 01/21/2022 Sex: Unknown Functional Status Question Answer Note LastModified by Organizat ion Details LastModified Time Do you have difficulty walking or climbing stairs? No [id number] Information not available 06/18/2020 Are you able to walk? YESWOREST [id number] Information not available 06/18/2020 Do you have difficulty doing errands alone? No [id number] Information not available 06/18/2020 Are you able to care for yourself? Yes [id number] Information not available 06/18/2020 Do you have difficulty dressing or bathing? No [id number] Information not available 06/18/2020 What is your exercise level? Moderate [id number] Information not available 06/18/2020 Mental Status Question Answer Note LastModified by Organization D etails LastModified Time Do you have difficulty concentrating, remembering or making decisions? No [id number] Information no t available 06/18/2020 Family History Nothing Reported. Medical History Condition Response Coronary Artery Disease N Gout N Other N Kidney Stones N Blood Diseases N Blood Transfusion N Breast Cancer N Lung Disease N Depression N COPD N Defects or Inherited Disease N Anxiety Disorder N Muscle, Joint, or Bone Problems N Obesity N Vision or Eye Problems N Arthritis N Infertility N Polyps N Mental Disorder N Cancer N Stroke N Varicosities N Endometriosis N Bladder or Kidney Problems N High Cholesterol N Liver Disease N Fibromyalgia N Headaches N Kidney Disease N Allergies/Hayfever N Heart [...] mcg/0.3 mL dose 1 completed Not Available [facility] 07/19/2023 13:39:41 COVID-19, mRNA, LNP-S, PF, 30 mcg/0.3 mL dose 2 completed Not Available [facility] 07/19/2023 13:39:41 influenza, unspecified formulation 2 completed Not Available [facility] 07/19/2023 13:39:41 pneumococcal polysaccharide PPV23 2 completed Not Available [facility] 07/19/2023 13:39:41 Influenza, split virus, quadrivalent, preservative 0 completed Not Available [facility] 07/19/2023 13:39:41 Tdap 0 completed Not Available [facility] 07/19/2023 13:39:41 Pneumococcal conjugate PCV 13 0 completed Not Available [facility] 07/19/2023 13:39:41 zoster recombinant 0 completed Not Available [facility] 07/19/2023 13:39:41 zoster recombinant 1 completed Not Available [facility] 07/[facility]/2023 13:39:41 COVID-19, mRNA, LNP-S, PF, 30 mcg/0.3 mL dose 1 completed Not Available [facility] 07/19/2023 13:39:41 COVID-19, mRNA, LNP-S, PF, 30 mcg/0.3 mL dose 1 completed Not Available [facility] 07/19/2023 13:39:41 Past Encounters Encounter ID Performer Location Encounter Start Date Encounter Closed Date Diagnosis/Indication Diagnosis SNOMED-CT Code Diagnosis ICD10 Code Diagnosis Note [id number] DO [facility] [address] [facility],[place] [address] 10/18/2024 11:13:17 10/18/2024 12:22:06 Adult health examination 937190962 Z00.00 doing well no major issues now that his bladder is drained and we will chk ihis lab Screening for cardiovascular system disease 553578809 Z13.6 Screening for malignant neoplasm of colon 513396213 Z12.11 Health Concerns Section Related Observation LastModified by Organization Detai ls LastModified Time None Recorded Concern Status LastModified by Organization Details LastModified Time None Recorded Payers Encounter Date Sequence Insurance Name Policy Number Policy Guzman Covered Member ID Guzman Member ID Guarantor Name 10/18/2024 2 [facility] (POS) [id number] Tae Bosch [id number] Tae Bosch 10/18/2024 1 MEDICARE B-ID: NATIONAL GOVERNMENT SERVICES Tae Bosch [id number] Tae Bosch Notes Date Note Type Note Provider Name a az Address Organization Details Recorded Time 5 text/html Medicare Annual Wellness VisitReported bypatient.Diet [...] good lighting in the home hhere for german hernandez doing okhad a aquablation prostate procedure Star Brewer DO [address] [place], [address], [facility] 10/18/2024 12:17:16
--- OUTSIDE RECORDS SUMMARY | 2024-10-24 11:07 | XMS_ITS | Continuity of Care Document ---
Author Name [facility] Organization [facility] Care Team Providers Care Tax Compliance Representative Name Role Phone [facility] Unavailable Unavailable Social History Combined list of available smoking, tobacco, and other social history from Department of Defense and Veterans Affairs facilities. Social History Type Response Date Comment Sourc e This section is an empty social history section. [facility]
--- OUTSIDE RECORDS SUMMARY | 2024-10-24 11:07 | XMS_ITS | Encounter Summary ---
Author Organization [facility], Address [address] [place] [address] Phone Care Team Providers Care [employer] Manager Name Role Phone DaniellaStar Primary Care Provider [phone] Encounter Details Date Type Department Care Team (Late st Contact Info) Description 08/02/2023 Documentation Only [facility], [address] [place] [address] Aki Ruiz MD [address] [place] [address] Social History Tobacco Use Types Packs/Day Years Used Date Smoking Tobacco: Never Assessed Sex and Gender Information Value Date Recorded Sex Assigned at Not on file Legal Sex Male 11:13 AM EST Gender Identity Not on file Sexual Orientation Not on file documented as of this encounter Plan of Treatment Not on file documented as of this encounter Visit Diagnoses Not on filedocumented in this encounter Care Teams [employer] Manager Relationship Specialty Start Date End Date Star Brewer DO [address] [facility] [phone] PCP - General Internal Medicine 07/19/23 documented as of this encounter
[2024-10-24 13:21] LABS: MANUAL DIFF FLAG NO
[2024-10-24 13:33] LABS: Basophils Absolute Auto 0.1 X10*3/uL (0.0-0.2); Eosinophils Absolute Auto 0.3 X10*3/uL (0.0-0.4); Hematocrit 42.4 % (42.0-52.0); Hemoglobin 13.8 g/dl (14.0-18.0); Imm Gran Abs Auto 0.02 X10*3/uL (0.00-0.03); Imm Gran Pct Auto 0.4 % (0.0-0.4); Lymphocytes Absolute Auto 1.8 X10*3/uL (1.2-4.9); Lymphocytes Percent Auto 35.5 % (20-40); Mean Corpuscular HGB Conc 32.5 g/dl (31.0-36.0); Mean Corpuscular Hemoglobin 29.5 pg (27.0-33.0); Mean Corpuscular Volume 90.6 fL (80.0-98.0); Mean Platelet Volume 10.8 fL (9.4-12.4); Monocytes Absolute Auto 0.6 X10*3/uL (0.1-1.2); Neutrophils Absolute Auto 2.4 x10*3/uL (2.0-8.3); Neutrophils Percent Auto 46.1 % (45-73); Platelet Count 204 X10*3/uL (160-400); Red Blood Count 4.68 X10*6/uL (4.60-5.80); Red Cell Distribution Width 12.3 % (11.0-16.0); White Blood Count 5.2 X10*3/uL (4.8-10.8)
[2024-10-24 14:38] LABS: Alanine Aminotransferase 19 U/L (0-40); Alkaline Phosphatase 52 U/L (39-117); Anion Gap 12 (12-20); Aspartate Amino Transferase 24 U/L (5-37); Bilirubin Total 0.8 mg/dL (0.0-1.0); Blood Urea Nitrogen 19 mg/dL (9-16); Calcium 9.6 mg/dL (8.4-10.2); Carbon Dioxide 26 mmol/L (22-29); Chloride 108 mmol/L (96-108); Cholesterol 281 mg/dL (<200); Estimated Glomerular Filt Rate 40; Glucose Random 102 mg/dL (60-115); HDL Cholesterol 69 mg/dL (>40); LDL Cholesterol Calculated 195 mg/dL (<100); Potassium 3.9 mmol/L (3.3-5.1); Sodium 142 mmol/L (135-145); Total Protein 7.1 g/dL (6.5-8.0); Triglycerides 87 mg/dL (<150)
== END 2024-10-24 09:48 | disposition home or self-care (01) ==
LOC: HO.MANLDS 09:47
PROVIDERS: Visit Provider Internal Medicine
DX: Z00.00 Encounter for general adult medical examination without abnormal findings (principal); Z13.6 Encounter for screening for cardiovascular disorders
CPT/HCPCS: 36415; 80053; 80061; 85025